=== PATIENT | female | born 1985 | race Caucasian/White ===

== ENCOUNTER 2024-04-02 07:45 | Outpatient (CLI) | payer BC | END 2024-04-02 07:46 | disposition home or self-care (01) | LOC: SCSMRI 07:45 | PROVIDERS: ATTEND Orthopaedic Surgery | DX: M23.91 Unspecified internal derangement of right knee (principal); M25.461 Effusion, right knee; M94.261 Chondromalacia, right knee ==

== ENCOUNTER 2024-05-04 05:55 | Day surgery (SDC) | payer BC ==
[2024-05-02 14:48] VITALS: BMI 35.2
[2024-05-04] MEDS ORDERED: fentaNYL 50 mcg/mL 1 mL Vial ONE ×2 (06:34→06:39)
[2024-05-04] MEDS ORDERED: PROPOFOL 20 ML ONE ×2 (06:34→06:39)
[2024-05-04] MEDS ORDERED: Lidocaine 1% PF 5 ML VIAL ONE (06:34)
[2024-05-04] MEDS ORDERED: Bupivacaine PF 0.5% 30 ML VIAL ONE (06:39)
[2024-05-04] MEDS ORDERED: Lidocaine 1% (PF) 30 ML VIAL ONE (06:39)
[2024-05-04] MEDS ORDERED: Lidocaine 2% PF 5 ML VIAL ONE (06:39)
[2024-05-04] MEDS ORDERED: Sodium Chloride 0.9% 100 ML ONE (06:48)
[2024-05-04] MEDS ORDERED: CEFAZOLIN 2 GM VIAL ONE (06:48)
[2024-05-04] MEDS ORDERED: Scopolamine 1 mg/72 hour Patch ONE (06:48)
[2024-05-04] MEDS ORDERED: Bupivacaine HCl 0.5%/Epinephrine 1:200,000/PF 30 ml Vial ONE (07:00)
[2024-05-04] MEDS ORDERED: Ondansetron PF 4 MG/2 ML Vial ONE (07:50)
[2024-05-04] MEDS ORDERED: Dexamethasone 20 MG/5 ML VIAL ONE (07:50)
[2024-05-04] MEDS ORDERED: fentaNYL PF 100 MCG/2 ML SYRINGE ONE (08:35)
[2024-05-04] MEDS ORDERED: Ketorolac Tromethamine 30 MG (1 mL) VIAL ONE (08:42)
== END 2024-05-04 10:20 | disposition home or self-care (01) ==
LOC: SDC 05:55
PROVIDERS: ATTEND Orthopaedic Surgery
PROC: 0SBC4ZZ Excision of Right Knee Joint, Percutaneous Endoscopic Approach (ICD-10-PCS; principal; 2024-05-04)
DX: M22.41 Chondromalacia patellae, right knee (principal); M23.91 Unspecified internal derangement of right knee; M23.241 Derangement of anterior horn of lateral meniscus due to old tear or injury, right knee; M23.251 Derangement of posterior horn of lateral meniscus due to old tear or injury, right knee; Z98.890 Other specified postprocedural states; Z79.899 Other long term (current) drug therapy
CPT/HCPCS: J0665; J1100; J1885; J2001; J2405; J2704; J3010; J3490